=== PATIENT | male | born 1940 | race Caucasian/White ===

== ENCOUNTER 2017-01-29 12:15 | Day surgery (SDC) | payer MEDICARE, BC ==
[2017-01-22 10:21] LABS: HEMATOCRIT 43.2 % (40.0-51.0); HEMOGLOBIN 14.5 g/dL (13.6-17.8)
[2017-01-22 10:32] LABS: CALCIUM, SERUM 8.7 MG/DL (8.5-10.4); CHLORIDE, SERUM 111 MMOL/L (96-112); CO2 (CARBON DIOXIDE) 25 MMOL/L (24-34); CREATININE 1.71 MG/DL (0.70-1.30); GFR AFRICAN AMERICAN 44 ML/MIN (>=60); GFR NON AFRICAN AMERICAN 38 ML/MIN (>=60); GLUCOSE, SERUM 117 MG/DL (60-99); POTASSIUM, SERUM 5.1 MMOL/L (3.5-5.3); SODIUM, SERUM 145 MMOL/L (135-148)
[2017-01-22 10:33] LABS: BUN (BLOOD UREA NITROGEN) 38 MG/DL (6-23)
--- NOTE | ~2017-01-29 | OP ---
Record Of Operation [facility] [address] [place]. [address] NAME: JAN JOSE : 40 STATUS : [facility]#: [id number] AGE: 76 ADM/REG DATE : 01/29/17 MR#: [id number] REPORT SERV DATE: 01/29/17 DICTATED BY: REED LANDON III DATE: 01/29/17 REPORT STATUS : Draft TRANSCRIBED BY: MODL DATE: 01/29/17 DATE OF PROCEDURE: 01/29/2017 PREOPERATIVE DIAGNOSIS: 1. Urethral stricture. 2. Right hydrocele. POSTOPERATIVE DIAGNOSIS: 1. Urethral stricture. 2. Right hydrocele. PROCEDURES: 1. Cystoscopy, urethral dilation. 2. Right hydrocele aspiration. SURGEON: Reed Landon M.D. ANESTHESIA: General. SPECIMEN: None. DRAIN: A 20-Dutch [place] tip catheter. INDICATION: Mr. Jose is a 76-year-old white male with history of urethral stricture disease. He also has a recurrent hydrocele which he prefers to have aspirated as opposed to repaired surgically. Consent is obtained for the above 2 procedures. PROCEDURE IN DETAIL: After consent was obtained, the patient was identified, he was taken to the OR and put to sleep. He was positioned in the low lithotomy and prepped and draped in the usual fashion. The light was used to transilluminate the right hydrocele. The testicle was not anterior. A 21-gauge butterfly was then inserted and then the fluid was aspirated, approximately 100 mL was aspirated until no more could be aspirated. Attention was then turned to a cystoscopy. He did have a splayed urethra and apparently had a stricture just inside the urethra. It took multiple attempts to get a wire through the stricture, but I was successful in doing so, the Sor[place] sounds were used to dilate to 24-Dutch. Cystoscopy was performed. The remainder of the urethra appeared normal. Cystoscopy was performed. The prostatic urethra was open. There were no tumors, stones, or foreign bodies. A guidewire was then passed through the cystoscope and into the bladder. The scope was removed. A 20- [place] tip catheter was then advanced over the wire. There was a fair amount of resistance, but ultimately was positioned in the bladder. The balloon was inflated at 10 mL. The wire was removed. The catheter was hooked up to gravity drainage. The patient was awakened and taken to recovery in stable condition. PH/MODL Record Of Operation [place] [address] [address] [address] NAME: JAN JOSE : 40 STATUS : [facility]#: [id number] AGE: 76 ADM/REG DATE : 01/29/17 MR#: [id number] REPORT SERV DATE: 01/29/17 DICTATED BY: REED LANDON III DATE: 01/29/17 REPORT STATUS : Draft TRANSCRIBED BY: MODL DATE: 01/29/17 Reed Landon III, M.D. / [id number] CC: Ernesto Aguilar III, M.D.
[~2017-01-29 12:15] MED LIST: ASAB PO; C5 PO; DILT-XR120 MG PO; ELIQUIS 5 MG TAB5 MG PO; JANTOVEN5 MG PO; L40 PO; LIPITOR40 PO; LOPID6 PO; NORV5 PO; PERCOCET1 TA4 PO; PRIN20 PO; SPIRO25 PO; TRAN200 PO
[2017-01-29 13:12] LABS: ALBUMIN 3.7 G/DL (3.5-5.0); DIRECT BILIRUBIN 0.2 MG/DL (0.0-0.4); INDIRECT BILIRUBIN(NOT ORDER) 0.5 MG/DL (0.1-0.9); TOTAL BILIRUBIN 0.7 MG/DL (0-1.2); TOTAL PROTEIN 6.9 G/DL (6.0-8.5)
== END 2017-01-29 19:20 | disposition home or self-care (01) ==
LOC: SDC 12:15
PROVIDERS: Urology
PROC: 0T7D8ZZ Dilation of Urethra, Via Natural or Artificial Opening Endoscopic (ICD-10-PCS; principal; 2017-01-29 14:00)
PROC: 0V9 Male Reproductive System, Drainage (ICD-10-PCS; 2017-01-29 14:00)
DX: N35.9 Urethral stricture, unspecified (principal); N43.3 Hydrocele, unspecified; I12.9 Hypertensive chronic kidney disease with stage 1 through stage 4 chronic kidney disease, or unspecified chronic kidney disease; E78.00 Pure hypercholesterolemia, unspecified; I48.91 Unspecified atrial fibrillation; N18.4 Chronic kidney disease, stage 4 (severe); Z98.890 Other specified postprocedural states
CPT/HCPCS: 80048; 80076; 85014; 85018; 93005; C1769; J2405; J3010